=== PATIENT | male | born 1960 | race African-American/Black ===

== ENCOUNTER → 2021-01-15 | Outpatient (CLI) | payer BC ==
[~2021-01-15] MED LIST: REGADENOSON 0.4 MG/5 ML IV ONE
== END | disposition home or self-care (01) ==
LOC: NM 06:17
PROVIDERS: ATTEND Specialist
DX: I11.9 Hypertensive heart disease without heart failure (principal); R94.31 Abnormal electrocardiogram [ECG] [EKG]; E78.5 Hyperlipidemia, unspecified; I73.9 Peripheral vascular disease, unspecified
CPT/HCPCS: 78452; 93306; A9500; J2785; 93017

== ENCOUNTER → 2021-05-12 | Outpatient (CLI) | payer BC ==
[2021-05-12 09:23] LABS: BASOPHILS % 0.4 % (0.0-2.0); EOSINOPHILS % 8.9 % (0.0-5.0); HEMATOCRIT. 43.2 % (42.0-52.0); HEMOGLOBIN. 14.5 g/dL (14.0-18.0); LYMPHOCYTES % 31.5 % (20.0-50.0); MEAN CORPUSCULAR HEMOGLOBIN 28.6 pg (28.0-32.0); MEAN CORPUSCULAR VOLUME 85.1 fL (80.0-94.0); MEAN PLATELET VOLUME 7.6 fl (7.4-10.4); MONOCYTES % 8.7 % (2.0-8.0); NEUTROPHILS % 50.5 % (40.0-76.0); PLATELET 210 x1000/uL (130-400); RED BLOOD CELL COUNT 5.08 mill/uL (4.7-6.1); RED CELL DISTRIBUTION WIDTH 14.7 % (11.6-14.6)
[2021-05-12 09:51] LABS: CHLORIDE 106 mEq/L (98-107)
[2021-05-12 09:58] LABS: HDL CHOLESTEROL 70 mg/dL (40-59); LDL CHOLESTEROL 78 mg/dL (5-100)
[2021-05-12 10:01] LABS: T4 FREE 0.87 ng/dL (0.76-1.46); TOTAL IRON BINDING CAPACITY 355 ug/dL (250-450)
[2021-05-12 10:12] LABS: FOLIC ACID (FOLATE) SERUM 14.2 ng/mL (>5.38)
== END | disposition home or self-care (01) ==
LOC: LAB 08:43
PROVIDERS: ATTEND Family Medicine Adult Medicine
DX: Z00.00 Encounter for general adult medical examination without abnormal findings (principal); I10 Essential (primary) hypertension; E11.8 Type 2 diabetes mellitus with unspecified complications; E55.9 Vitamin D deficiency, unspecified
CPT/HCPCS: 36415; 80053; 80061; 82306; 82607; 82728; 82746; 83036; 83540; 83550; 84439; 84443; 84481; 85025

== ENCOUNTER → 2021-06-03 | Outpatient (CLI) | payer BC | END | disposition home or self-care (01) | LOC: PVL 08:39 | PROVIDERS: ATTEND Specialist | DX: I73.9 Peripheral vascular disease, unspecified (principal); I87.1 Compression of vein | CPT/HCPCS: 93923 ==

== ENCOUNTER 2021-09-06 19:47 | Emergency (ER) | payer BC ==
[~2021-09-06] VITALS: Ht 170.2 cm; Wt 97.0 kg
[2021-09-06 22:30] VITALS: BP 143/83
[2021-09-06 22:35] LABS: BASOPHILS % 0.5 % (0.0-2.0); EOSINOPHILS % 8.9 % (0.0-5.0); HEMATOCRIT. 48.4 % (42.0-52.0); HEMOGLOBIN. 16.4 g/dL (14.0-18.0); LYMPHOCYTES % 32.3 % (20.0-50.0); MEAN CORPUSCULAR HEMOGLOBIN 28.5 pg (28.0-32.0); MEAN CORPUSCULAR VOLUME 84.2 fL (80.0-94.0); MEAN PLATELET VOLUME 7.9 fl (7.4-10.4); MONOCYTES % 8.5 % (2.0-8.0); NEUTROPHILS % 49.8 % (40.0-76.0); PLATELET 225 x1000/uL (130-400); RED BLOOD CELL COUNT 5.75 mill/uL (4.7-6.1)
[2021-09-06 22:44] LABS: CHLORIDE 108 mEq/L (98-107)
[2021-09-07] MEDS ORDERED: MORPHINE SULFATE 2 MG/ML CPJ (NOT FOR IM USE) IV NR (00:15)
[2021-09-07] MEDS ORDERED: IBUP-2029 MT (02:04)
== END 2021-09-07 02:52 | disposition home or self-care (01) ==
LOC: ER 19:47
DX: M79.661 Pain in right lower leg (principal); E78.00 Pure hypercholesterolemia, unspecified; I10 Essential (primary) hypertension
CPT/HCPCS: 36415; 71045; 80053; 83880; 84484; 85025; 93005; 93922; 93971; 96374; 99285; J2270

== ENCOUNTER → 2021-09-21 | Outpatient (CLI) | payer BC ==
[~2021-09-21] MED LIST changes: +IBUP-2029 MT; -REGADENOSON 0.4 MG/5 ML IV ONE
[2021-09-21 11:43] LABS: BASOPHILS % 0.4 % (0.0-2.0); EOSINOPHILS % 5.4 % (0.0-5.0); HEMATOCRIT. 43.5 % (42.0-52.0); HEMOGLOBIN. 14.9 g/dL (14.0-18.0); LYMPHOCYTES % 21.7 % (20.0-50.0); MEAN CORPUSCULAR HEMOGLOBIN 28.7 pg (28.0-32.0); MEAN CORPUSCULAR VOLUME 83.8 fL (80.0-94.0); MEAN PLATELET VOLUME 7.7 fl (7.4-10.4); MONOCYTES % 8.4 % (2.0-8.0); NEUTROPHILS % 64.1 % (40.0-76.0); PLATELET 212 x1000/uL (130-400); RED BLOOD CELL COUNT 5.19 mill/uL (4.7-6.1); RED CELL DISTRIBUTION WIDTH 14.2 % (11.6-14.6)
[2021-09-21 11:55] LABS: CHLORIDE 102 mEq/L (98-107)
[2021-09-21 12:11] LABS: HDL CHOLESTEROL 67 mg/dL (40-59); LDL CHOLESTEROL 133 mg/dL (5-100); T4 FREE 0.95 ng/dL (0.76-1.46); TOTAL IRON BINDING CAPACITY 358 ug/dL (250-450)
[2021-09-21 12:28] LABS: FERRITIN 44 ng/mL (22-322); PROSTRATE SPECIFIC AG TOTAL 0.42 ng/mL (0.0-4.0)
[2021-09-21 12:42] LABS: FOLIC ACID (FOLATE) SERUM >20 ng/mL ng/mL (>5.38); VITAMIN B12 SERUM 205 pg/mL (211-911)
== END | disposition home or self-care (01) ==
LOC: LAB 11:21
PROVIDERS: ATTEND Specialist
DX: I10 Essential (primary) hypertension (principal); E11.8 Type 2 diabetes mellitus with unspecified complications; I67.89 Other cerebrovascular disease
CPT/HCPCS: 36415; 80053; 80061; 82306; 82607; 82728; 82746; 83036; 83540; 83550; 84153; 84439; 84443; 84481; 85025; G0103

== ENCOUNTER 2022-02-08 18:57 | Emergency (ER) | payer BC ==
[~2022-02-08] VITALS: Ht 170.2 cm; Wt 95.0 kg
[2022-02-09 02:43] LABS: BASOPHILS % 0.5 % (0.0-2.0); HEMATOCRIT. 49.8 % (42.0-52.0); HEMOGLOBIN. 16.6 g/dL (14.0-18.0); LYMPHOCYTES % 17.2 % (20.0-50.0); MEAN CORPUSCULAR VOLUME 84.1 fL (80.0-94.0); MEAN PLATELET VOLUME 7.9 fl (7.4-10.4); MONOCYTES % 6.7 % (2.0-8.0); NEUTROPHILS % 70.6 % (40.0-76.0); PLATELET 243 x1000/uL (130-400); RED BLOOD CELL COUNT 5.93 mill/uL (4.7-6.1); RED CELL DISTRIBUTION WIDTH 15.3 % (11.6-14.6)
[2022-02-09 02:46] LABS: CHLORIDE 99 mEq/L (98-107)
[2022-02-09] MEDS ORDERED: IOHEXOL-350 100 ML BOTTLE ONE (05:12)
[2022-02-09 06:00] VITALS: BP 143/75
== END 2022-02-09 06:00 | disposition home or self-care (01) ==
LOC: ER 19:15
DX: R07.9 Chest pain, unspecified (principal); E11.9 Type 2 diabetes mellitus without complications; I10 Essential (primary) hypertension; E78.00 Pure hypercholesterolemia, unspecified; Z86.718 Personal history of other venous thrombosis and embolism
CPT/HCPCS: 36415; 71045; 71275; 80053; 83880; 84484; 85025; 93005; 99285; Q9967

== ENCOUNTER → 2022-08-09 | Outpatient (CLI) | payer BC ==
[2022-08-09 09:43] LABS: BASOPHILS % 0.6 % (0.0-2.0); CLARITY URINE CLEAR (CLEAR); COLOR URINE YELLOW (YELLOW); HEMATOCRIT. 48.6 % (42.0-52.0); HEMOGLOBIN. 16.5 g/dL (14.0-18.0); KETONES URINE TRACE (NEGATIVE); LEUKOCYTE ESTERASE URINE NEGATIVE (NEGATIVE); LYMPHOCYTES % 26.3 % (20.0-50.0); MEAN CORPUSCULAR HEMOGLOBIN 29.1 pg (28.0-32.0); MEAN CORPUSCULAR VOLUME 85.8 fL (80.0-94.0); MEAN PLATELET VOLUME 7.6 fl (7.4-10.4); MONOCYTES % 8.3 % (2.0-8.0); NEUTROPHILS % 57.8 % (40.0-76.0); NITRITE URINE NEGATIVE (NEGATIVE); OCCULT BLOOD URINE NEGATIVE (NEGATIVE); PLATELET 218 x1000/uL (130-400); PROTEIN URINE NEGATIVE (NEGATIVE); RED BLOOD CELL COUNT 5.67 mill/uL (4.7-6.1); RED CELL DISTRIBUTION WIDTH 13.7 % (11.6-14.6); SPECIFIC GRAVITY URINE 1.025 (1.005-1.030)
[2022-08-09 09:50] LABS: CHLORIDE 102 mEq/L (98-107)
[2022-08-09 10:10] LABS: HDL CHOLESTEROL 75 mg/dL (40-59); LDL CHOLESTEROL 178 mg/dL (5-100); T4 FREE 0.88 ng/dL (0.76-1.46); TOTAL IRON BINDING CAPACITY 405 ug/dL (250-450)
[2022-08-09 10:30] LABS: FOLIC ACID (FOLATE) SERUM >20 ng/mL ng/mL (>5.38); VITAMIN B12 SERUM 623 pg/mL (211-911)
[2022-08-09 14:13] LABS: FERRITIN 20 ng/mL (22-322); PROSTRATE SPECIFIC AG TOTAL 0.51 ng/mL (0.0-4.0)
== END | disposition home or self-care (01) ==
LOC: LAB 09:10
PROVIDERS: ATTEND Family Medicine Adult Medicine
DX: I10 Essential (primary) hypertension (principal); D50.9 Iron deficiency anemia, unspecified; E11.8 Type 2 diabetes mellitus with unspecified complications; I67.89 Other cerebrovascular disease
CPT/HCPCS: 36415; 80053; 80061; 81003; 82306; 82607; 82728; 82746; 83036; 83540; 83550; 84153; 84439; 84443; 84481; 85025; 85651; G0103

== ENCOUNTER → 2022-09-16 | Day surgery (SDC) | payer BC | END | disposition home or self-care (01) | LOC: CCL 08:44 | PROVIDERS: ATTEND Specialist | DX: I25.10 Atherosclerotic heart disease of native coronary artery without angina pectoris (principal); Z79.899 Other long term (current) drug therapy | CPT/HCPCS: 93350 ==

== ENCOUNTER → 2023-02-10 | Outpatient (CLI) | payer BC ==
[2023-02-10 10:17] LABS: BASOPHILS % 0.4 % (0.0-2.0); HEMATOCRIT. 49.4 % (42.0-52.0); HEMOGLOBIN. 16.2 g/dL (14.0-18.0); LYMPHOCYTES % 26.5 % (20.0-50.0); MEAN CORPUSCULAR HEMOGLOBIN 28.9 pg (28.0-32.0); MEAN CORPUSCULAR HGB CONC 32.9 g/dL (31.0-37.0); MEAN CORPUSCULAR VOLUME 87.9 fL (80.0-94.0); MEAN PLATELET VOLUME 8.6 fl (7.4-10.4); MONOCYTES % 6.6 % (2.0-8.0); NEUTROPHILS % 58.5 % (40.0-76.0); PLATELET 180 x1000/uL (130-400); RED BLOOD CELL COUNT 5.62 mill/uL (4.7-6.1); RED CELL DISTRIBUTION WIDTH 14.4 % (11.6-14.6); WHITE BLOOD COUNT 4.4 x1000/uL (4.5-11.0)
[2023-02-10 11:48] LABS: FERRITIN 42 ng/mL (22-322); FOLIC ACID (FOLATE) SERUM > 20.00 ng/mL (>5.38); PROSTRATE SPECIFIC AG TOTAL 0.43 ng/mL (0.0-4.0); VITAMIN B12 SERUM 545 pg/mL (211-911)
[2023-02-10 12:11] LABS: ERYTHROCYTE SEDIMENTATION RATE 2 mm/hr (0-20)
[2023-02-11 19:20] LABS: ALANINE AMINOTRANSFERASE 36 IU/L (10-49); ASPARTATE AMINOTRANSFERASE 30 IU/L (<34); BILIRUBIN TOTAL 1.1 mg/dL (0.1-1.0); CALCIUM 10.8 mg/dL (8.7-10.4); CARBON DIOXIDE 15 mEq/L (21-32); CHLORIDE 113 mEq/L (98-107); CHOLESTEROL 162 mg/dL (<200); CREATININE 1.5 mg/dL (0.6-1.3); GLUCOSE 62 mg/dL (70-105); HDL CHOLESTEROL 66 mg/dL (>55); IRON 79 ug/dL (65-175); LDL CHOLESTEROL 116 mg/dL (5-100); POTASSIUM 4.7 mEq/L (3.5-5.1); SODIUM 151 mEq/L (136-145); T4 FREE 1.51 ng/dL (0.89-1.76); THYROID STIMULATING HORMONE 1.69 uIU/mL (0.55-4.78); TOTAL IRON BINDING CAPACITY 99 ug/dl (250-425); TRIGLYCERIDE 82 mg/dL (0-150)
[2023-02-11 19:26] LABS: PROTEIN TOTAL < 2.0 g/dL (6.0-8.3); UREA NITROGEN BLOOD < 5 mg/dL (9-23)
== END | disposition home or self-care (01) ==
LOC: LAB 09:21
PROVIDERS: ATTEND Family Medicine Adult Medicine
DX: E11.51 Type 2 diabetes mellitus with diabetic peripheral angiopathy without gangrene (principal); E78.5 Hyperlipidemia, unspecified; D50.9 Iron deficiency anemia, unspecified
CPT/HCPCS: 36415; 80053; 80061; 82306; 82607; 82728; 82746; 83036; 83540; 83550; 84153; 84439; 84443; 84481; 85025; 85651; G0103

== ENCOUNTER → 2023-03-07 | Outpatient (CLI) | payer BC | END | disposition home or self-care (01) | LOC: RAD 10:16 | PROVIDERS: ATTEND Specialist | DX: Z86.718 Personal history of other venous thrombosis and embolism (principal) | CPT/HCPCS: 93970 ==

== ENCOUNTER → 2023-08-03 | Outpatient (CLI) | payer BC ==
[2023-08-03 09:29] LABS: CARBON DIOXIDE 27 mEq/L (21-32); CHLORIDE 104 mEq/L (98-107); SODIUM 140 mEq/L (136-145)
[2023-08-03 09:30] LABS: CALCIUM 10.8 mg/dL (8.7-10.4)
[2023-08-03 09:33] LABS: FERRITIN 74 ng/mL (22-322); FOLIC ACID (FOLATE) SERUM 18.57 ng/mL (>5.38); VITAMIN B12 SERUM 812 pg/mL (211-911)
[2023-08-03 09:34] LABS: CREATININE 1.4 mg/dL (0.6-1.3); GLUCOSE 104 mg/dL (70-105); IRON 73 ug/dL (65-175)
[2023-08-03 09:35] LABS: TRIGLYCERIDE 59 mg/dL (0-150); UREA NITROGEN BLOOD 15 mg/dL (9-23)
[2023-08-03 09:36] LABS: ALANINE AMINOTRANSFERASE 26 IU/L (10-49); ALBUMIN 4.6 g/dL (3.2-4.8); ASPARTATE AMINOTRANSFERASE 18 IU/L (<34); LDL CHOLESTEROL 92 mg/dL (5-100)
[2023-08-03 09:37] LABS: BILIRUBIN TOTAL 0.8 mg/dL (0.1-1.0); CHOLESTEROL 166 mg/dL (<200); HDL CHOLESTEROL 61 mg/dL (>55); PROTEIN TOTAL 8.2 g/dL (6.0-8.3); TOTAL IRON BINDING CAPACITY 137 ug/dl (250-425)
[2023-08-03 09:39] LABS: T4 FREE 1.31 ng/dL (0.89-1.76); THYROID STIMULATING HORMONE 2.57 uIU/mL (0.55-4.78)
[2023-08-03 11:55] LABS: BASOPHILS % 0.5 % (0.0-2.0); HEMATOCRIT. 46.8 % (42.0-52.0); HEMOGLOBIN. 15.5 g/dL (14.0-18.0); LYMPHOCYTES % 24.4 % (20.0-50.0); MEAN CORPUSCULAR HEMOGLOBIN 28.1 pg (28.0-32.0); MEAN CORPUSCULAR HGB CONC 33.2 g/dL (31.0-37.0); MEAN CORPUSCULAR VOLUME 84.7 fL (80.0-94.0); MEAN PLATELET VOLUME 8.5 fl (7.4-10.4); MONOCYTES % 8.1 % (2.0-8.0); PLATELET 262 x1000/uL (130-400); RED BLOOD CELL COUNT 5.53 mill/uL (4.7-6.1); RED CELL DISTRIBUTION WIDTH 14.6 % (11.6-14.6); WHITE BLOOD COUNT 4.8 x1000/uL (4.5-11.0)
[2023-08-03 13:28] LABS: ERYTHROCYTE SEDIMENTATION RATE 9 mm/hr (0-20)
[2023-08-04 08:12] LABS: PROSTATE SPECIFIC AG TOTAL 0.6 ng/mL (0.0-4.0); VITAMIN D 25-OH 41.5 ng/mL (30.0-100.0)
== END | disposition home or self-care (01) ==
LOC: LAB 08:25
PROVIDERS: ATTEND Family Medicine Adult Medicine
DX: E11.51 Type 2 diabetes mellitus with diabetic peripheral angiopathy without gangrene (principal); E78.5 Hyperlipidemia, unspecified; D50.9 Iron deficiency anemia, unspecified
CPT/HCPCS: 36415; 80053; 80061; 82306; 82607; 82728; 82746; 83036; 83540; 83550; 84153; 84439; 84443; 84481; 85025; 85651

== ENCOUNTER → 2023-11-07 | Outpatient (CLI) | payer BC ==
[2023-11-07 11:46] LABS: CARBON DIOXIDE 29 mEq/L (21-32); CHLORIDE 104 mEq/L (98-107); POTASSIUM 4.1 mEq/L (3.5-5.1); SODIUM 138 mEq/L (136-145)
[2023-11-07 11:47] LABS: CALCIUM 10.1 mg/dL (8.7-10.4)
[2023-11-07 11:51] LABS: CREATININE 1.5 mg/dL (0.6-1.3)
[2023-11-07 11:52] LABS: LDL CHOLESTEROL 107 mg/dL (5-100); TRIGLYCERIDE 80 mg/dL (0-150); UREA NITROGEN BLOOD 15 mg/dL (9-23)
[2023-11-07 11:53] LABS: ALANINE AMINOTRANSFERASE 26 IU/L (10-49); ALBUMIN 4.6 g/dL (3.2-4.8); ASPARTATE AMINOTRANSFERASE 15 IU/L (<34)
[2023-11-07 11:54] LABS: BILIRUBIN TOTAL 0.7 mg/dL (0.1-1.0); CHOLESTEROL 175 mg/dL (<200); HDL CHOLESTEROL 56 mg/dL (>55); PROTEIN TOTAL 7.8 g/dL (6.0-8.3)
[2023-11-07 12:41] LABS: GLUCOSE 262 mg/dL (70-105)
== END | disposition home or self-care (01) ==
LOC: LAB 11:02
PROVIDERS: ATTEND Family Medicine Adult Medicine
DX: R94.31 Abnormal electrocardiogram [ECG] [EKG] (principal); I11.9 Hypertensive heart disease without heart failure; E78.2 Mixed hyperlipidemia
CPT/HCPCS: 36415; 80053; 80061; 83036

== ENCOUNTER → 2023-12-26 | Outpatient (CLI) | payer BC | END | disposition home or self-care (01) | LOC: MRI 10:20 | PROVIDERS: ATTEND Specialist | DX: R90.82 White matter disease, unspecified (principal); I67.82 Cerebral ischemia; R42 Dizziness and giddiness | CPT/HCPCS: 70551 ==

== ENCOUNTER → 2024-01-09 | Outpatient (CLI) | payer BC ==
[~2024-01-09] MED LIST changes: +GADOTERATE MEGLUMINE 5 MMOL/10 ML VIAL IV ONE
== END | disposition home or self-care (01) ==
LOC: MRI 08:38
PROVIDERS: ATTEND Family Medicine Adult Medicine
DX: E04.2 Nontoxic multinodular goiter (principal); Z86.73 Personal history of transient ischemic attack (TIA), and cerebral infarction without residual deficits; I73.9 Peripheral vascular disease, unspecified
CPT/HCPCS: 70553; 93923; 76536; A9577

== ENCOUNTER → 2024-02-14 | Outpatient (CLI) | payer BC ==
[~2024-02-14] MED LIST changes: -GADOTERATE MEGLUMINE 5 MMOL/10 ML VIAL IV ONE
[2024-02-14 09:59] LABS: CHLORIDE 105 mEq/L (98-107); POTASSIUM 4.1 mEq/L (3.5-5.1); SODIUM 139 mEq/L (136-145)
[2024-02-14 10:00] LABS: CALCIUM 10.5 mg/dL (8.7-10.4); CARBON DIOXIDE 27 mEq/L (21-32)
[2024-02-14 10:05] LABS: CREATININE 1.4 mg/dL (0.6-1.3); GLUCOSE 194 mg/dL (70-105); HEMATOCRIT. 47.4 % (42.0-52.0); HEMOGLOBIN. 15.9 g/dL (14.0-18.0); MEAN CORPUSCULAR HEMOGLOBIN 28.3 pg (28.0-32.0); MEAN CORPUSCULAR HGB CONC 33.5 g/dL (31.0-37.0); MEAN CORPUSCULAR VOLUME 84.6 fL (80.0-94.0); MEAN PLATELET VOLUME 8.1 fl (7.4-10.4); PLATELET 182 x1000/uL (130-400); RED BLOOD CELL COUNT 5.61 mill/uL (4.7-6.1); RED CELL DISTRIBUTION WIDTH 15.1 % (11.6-14.6); TRIGLYCERIDE 119 mg/dL (0-150); UREA NITROGEN BLOOD 18 mg/dL (9-23); WHITE BLOOD COUNT 7.1 x1000/uL (4.5-11.0)
[2024-02-14 10:06] LABS: LDL CHOLESTEROL 112 mg/dL (5-100)
[2024-02-14 10:07] LABS: ALANINE AMINOTRANSFERASE 15 IU/L (10-49); ALBUMIN 4.3 g/dL (3.2-4.8); ASPARTATE AMINOTRANSFERASE 11 IU/L (<34); CHOLESTEROL 185 mg/dL (<200); HDL CHOLESTEROL 46 mg/dL (>55)
[2024-02-14 10:08] LABS: BILIRUBIN TOTAL 0.8 mg/dL (0.1-1.0); PROTEIN TOTAL 7.6 g/dL (6.0-8.3)
[2024-02-14 10:35] LABS: DIFFERENTIAL COMMENT 1
[2024-02-14 11:32] LABS: T4 FREE 1.12 ng/dL (0.89-1.76); THYROID STIMULATING HORMONE 1.74 uIU/mL (0.55-4.78)
[2024-02-14 14:26] LABS: PLATELET ESTIMATE NORMAL
== END | disposition home or self-care (01) ==
LOC: LAB 09:30
PROVIDERS: ATTEND Specialist
DX: I11.9 Hypertensive heart disease without heart failure (principal); E78.2 Mixed hyperlipidemia
CPT/HCPCS: 36415; 80053; 80061; 83036; 83735; 84439; 84443; 84481; 85025

== ENCOUNTER → 2024-05-27 | Outpatient (CLI) | payer BC ==
[2024-05-27 11:41] LABS: CLARITY URINE CLEAR (CLEAR); COLOR URINE YELLOW (YELLOW); GLUCOSE URINE 3+ (NEGATIVE); KETONES URINE NEGATIVE (NEGATIVE); LEUKOCYTE ESTERASE URINE NEGATIVE (NEGATIVE); NITRITE URINE NEGATIVE (NEGATIVE); OCCULT BLOOD URINE TRACE (NEGATIVE); PROTEIN URINE TRACE (NEGATIVE); SPECIFIC GRAVITY URINE 1.035 (1.005-1.030); UROBILINOGEN URINE 0.2 E.U./dL (0.2-1.0)
[2024-05-27 11:43] LABS: BASOPHILS % 0.8 % (0.0-2.0); EOSINOPHILS % 12.6 % (0.0-5.0); HEMATOCRIT. 50.7 % (42.0-52.0); HEMOGLOBIN. 16.1 g/dL (14.0-18.0); LYMPHOCYTES % 35.6 % (20.0-50.0); MEAN CORPUSCULAR HEMOGLOBIN 28.1 pg (28.0-32.0); MEAN CORPUSCULAR HGB CONC 31.8 g/dL (31.0-37.0); MEAN CORPUSCULAR VOLUME 88.4 fL (80.0-94.0); MEAN PLATELET VOLUME 8.3 fl (7.4-10.4); MONOCYTES % 8.9 % (2.0-8.0); NEUTROPHILS % 42.1 % (40.0-76.0); PLATELET 203 x1000/uL (130-400); RED BLOOD CELL COUNT 5.73 mill/uL (4.7-6.1); RED CELL DISTRIBUTION WIDTH 14.8 % (11.6-14.6); WHITE BLOOD COUNT 5.2 x1000/uL (4.5-11.0)
[2024-05-27 11:48] LABS: CHLORIDE 101 mEq/L (98-107); POTASSIUM 3.7 mEq/L (3.5-5.1); SODIUM 141 mEq/L (136-145)
[2024-05-27 11:49] LABS: CALCIUM 10.3 mg/dL (8.7-10.4); CARBON DIOXIDE 28 mEq/L (21-32)
[2024-05-27 11:53] LABS: IRON 85 ug/dL (65-175)
[2024-05-27 11:54] LABS: CREATININE 1.5 mg/dL (0.6-1.3); GLUCOSE 55 mg/dL (70-105); TRIGLYCERIDE 125 mg/dL (0-150); UREA NITROGEN BLOOD 14 mg/dL (9-23)
[2024-05-27 11:55] LABS: ALANINE AMINOTRANSFERASE 27 IU/L (10-49); ASPARTATE AMINOTRANSFERASE 18 IU/L (<34); LDL CHOLESTEROL 93 mg/dL (5-100)
[2024-05-27 11:56] LABS: ALBUMIN 4.5 g/dL (3.2-4.8); BILIRUBIN TOTAL 0.8 mg/dL (0.1-1.0); CHOLESTEROL 175 mg/dL (<200); HDL CHOLESTEROL 56 mg/dL (>55); PROTEIN TOTAL 8.3 g/dL (6.0-8.3); TOTAL IRON BINDING CAPACITY 145 ug/dl (250-425)
[2024-05-27 11:57] LABS: T4 FREE 1.22 ng/dL (0.89-1.76)
[2024-05-27 11:58] LABS: THYROID STIMULATING HORMONE 3.45 uIU/mL (0.55-4.78)
[2024-05-27 13:00] LABS: BACTERIA URINE NONE SEEN; RBC URINE 0-2 /hpf (0-2); SQUAMOUS EPITHELIAL CELL URINE 1+ /lpf (RARE/1+); WBC URINE 0-2 /hpf (0-2); YEAST URINE NONE SEEN
[2024-05-27 13:54] LABS: ERYTHROCYTE SEDIMENTATION RATE 2 mm/hr (0-20)
[2024-05-27 14:22] LABS: FOLIC ACID (FOLATE) SERUM 18.59 ng/mL (>5.38); VITAMIN B12 SERUM 749 pg/mL (211-911)
[2024-05-27 14:23] LABS: FERRITIN 23 ng/mL (22-322)
== END | disposition home or self-care (01) ==
LOC: LAB 10:54
PROVIDERS: ATTEND Family Medicine Adult Medicine
DX: I10 Essential (primary) hypertension (principal); E11.8 Type 2 diabetes mellitus with unspecified complications; E78.5 Hyperlipidemia, unspecified
CPT/HCPCS: 36415; 80053; 80061; 81003; 82306; 82607; 82728; 82746; 83036; 83540; 83550; 84439; 84443; 84481; 85025; 85651

== ENCOUNTER → 2024-07-11 | Outpatient (CLI) | payer BC ==
[2024-07-11 10:05] LABS: BASOPHILS % 0.9 % (0.0-2.0); EOSINOPHILS % 6.8 % (0.0-5.0); HEMATOCRIT. 50.9 % (42.0-52.0); HEMOGLOBIN. 16.8 g/dL (14.0-18.0); LYMPHOCYTES % 26.4 % (20.0-50.0); MEAN CORPUSCULAR HEMOGLOBIN 28.6 pg (28.0-32.0); MEAN CORPUSCULAR HGB CONC 33.1 g/dL (31.0-37.0); MEAN CORPUSCULAR VOLUME 86.5 fL (80.0-94.0); MEAN PLATELET VOLUME 8.4 fl (7.4-10.4); MONOCYTES % 6.9 % (2.0-8.0); PLATELET 183 x1000/uL (130-400); RED BLOOD CELL COUNT 5.88 mill/uL (4.7-6.1); RED CELL DISTRIBUTION WIDTH 14.3 % (11.6-14.6); WHITE BLOOD COUNT 4.1 x1000/uL (4.5-11.0)
[2024-07-11 10:21] LABS: CHLORIDE 104 mEq/L (98-107); POTASSIUM 4.2 mEq/L (3.5-5.1); SODIUM 140 mEq/L (136-145)
[2024-07-11 10:22] LABS: CALCIUM 10.1 mg/dL (8.7-10.4); CARBON DIOXIDE 29 mEq/L (21-32)
[2024-07-11 10:27] LABS: CREATININE 1.4 mg/dL (0.6-1.3); GLUCOSE 127 mg/dL (70-105); TRIGLYCERIDE 67 mg/dL (0-150)
[2024-07-11 10:28] LABS: LDL CHOLESTEROL 95 mg/dL (5-100); UREA NITROGEN BLOOD 18 mg/dL (9-23)
[2024-07-11 10:29] LABS: ALANINE AMINOTRANSFERASE 27 IU/L (10-49); ALBUMIN 4.6 g/dL (3.2-4.8); ASPARTATE AMINOTRANSFERASE 16 IU/L (<34); CHOLESTEROL 174 mg/dL (<200); HDL CHOLESTEROL 57 mg/dL (>55)
[2024-07-11 10:30] LABS: PROTEIN TOTAL 8.6 g/dL (6.0-8.3)
[2024-07-11 10:31] LABS: T4 FREE 1.14 ng/dL (0.89-1.76)
[2024-07-11 10:32] LABS: THYROID STIMULATING HORMONE 2.66 uIU/mL (0.55-4.78)
[2024-07-13 07:12] LABS: *CREATININE RANDOM URINE 99.1 mg/dL (Not Estab.)
== END | disposition home or self-care (01) ==
LOC: LAB 09:36
PROVIDERS: ATTEND Internal Medicine Endocrinology, Diabetes & Metabolism
DX: E11.65 Type 2 diabetes mellitus with hyperglycemia (principal); E78.00 Pure hypercholesterolemia, unspecified; E66.9 Obesity, unspecified
CPT/HCPCS: 36415; 80053; 80061; 82043; 82306; 82570; 83036; 83880; 84439; 84443; 84481; 84681; 85025

== ENCOUNTER → 2024-10-10 | Outpatient (CLI) | payer BC ==
[~2024-10-10] MED LIST changes: +GADOTERATE MEGLUMINE 5 MMOL/10 ML VIAL IV ONE
== END | disposition home or self-care (01) ==
LOC: MRI 09:30
PROVIDERS: ATTEND Psychiatry & Neurology Neurology
DX: I67.82 Cerebral ischemia (principal); G31.9 Degenerative disease of nervous system, unspecified; G93.89 Other specified disorders of brain; R42 Dizziness and giddiness; R53.1 Weakness
CPT/HCPCS: 70553; 70544; A9577